=== PATIENT | female | born 1985 | race Caucasian/White ===

== ENCOUNTER 2018-11-13 10:54 | Inpatient (IN) | payer MEDICAID ==
[~2018-11-13] VITALS: Ht 167.6 cm; Wt 122.5 kg
[~2018-11-13 10:54] MED LIST: LACTATED RINGERS 1,000 ML IV SCH
[2018-11-13 11:29] LABS: UCG SCREEN NEGATIVE
[2018-11-13] MEDS ORDERED: LEVO1TAB58 PO (11:52)
[2018-11-13] MEDS ORDERED: LIDOCAINE HCL 1% 20ML VIAL (Pyxis) INJ ONE (11:59)
[2018-11-13] MEDS ORDERED: CEFOXITIN SODIUM 2 G in DEXT 5% WATER 100 ML IV ONE (12:00)
[2018-11-13] MEDS ORDERED: SKIN ADHESIVE 0.7 GM EA TOP ONE (12:00)
[2018-11-13] MEDS ORDERED: BUPIVACAINE HCL/PF 0.5% (5MG/ML) 10ML ONE (12:00)
[2018-11-13] MEDS ORDERED: MIDAZOLAM HCL 2 MG/2 ML VIAL ONE (12:35)
[2018-11-13] MEDS ORDERED: FENTANYL CITRATE/PF 50MCG/ML 2ML VIAL ONE (12:35)
[2018-11-13] MEDS ORDERED: PROPOFOL 200MG/20ML VIAL IV ONE (12:36)
[2018-11-13] MEDS ORDERED: IOPAMIDOL 61% 300/15 ML VIAL IT ONE (12:37)
[2018-11-13] MEDS ORDERED: LIDOCAINE HCL/PF 1% 10 MG/ML 5ML VIAL ONE (12:37)
[2018-11-13] MEDS ORDERED: SODIUM CHLORIDE 0.9% 10ML VIAL ONE (12:40)
[2018-11-13] MEDS ORDERED: CEFAZOLIN SODIUM 1000MG/VIAL ONE (12:40)
[2018-11-13] MEDS ORDERED: EPHEDRINE SULFATE 50MG/ML VIAL ONE (12:43)
[2018-11-13] MEDS ORDERED: SUCCINYLCHOLINE CHLORIDE 200MG/10ML IV ONE (12:43)
[2018-11-13] MEDS ORDERED: ROCURONIUM BROMIDE 10MG/ML VIAL 5ML IV ONE ×2 (14:14→15:00)
[2018-11-13] MEDS ORDERED: ONDANSETRON HCL 4MG/2ML INJ ONE (14:51)
[2018-11-13] MEDS ORDERED: DEXAMETHASONE 4MG/ML 1ML VIAL ONE (14:51)
[2018-11-13] MEDS ORDERED: GLYCOPYRROLATE 0.2 MG/ML 2ML VIAL ONE (15:01)
[2018-11-13] MEDS ORDERED: NEOSTIGMINE METHYLSULFATE 1MG/ML 10 ML VIAL ONE (15:01)
[2018-11-13] MEDS ORDERED: ONDANSETRON HCL 4MG/2ML INJ IV PRN (15:45)
[2018-11-13] MEDS ORDERED: HYDROMORPHONE HCL/PF 2MG/ML CPJ IV PRN (15:45)
[2018-11-13] MEDS: HYDROMORPHONE HCL/PF 2MG/ML CPJ IV PRN ×9 (16:52→21:16)
[2018-11-13 23:00] VITALS: BP 126/62
[2018-11-14] VITALS: BP 126/62
[2018-11-14] MEDS ORDERED: SODIUM CHLORIDE 0.45% 1,000 ML IV SCH (01:00)
[2018-11-14] MEDS ORDERED: DIPHENHYDRAMINE 50MG CAPSULE PO PRN (01:45)
[2018-11-14 04:00] VITALS: BP 114/59
[2018-11-14] MEDS ORDERED: KETOROLAC 30MG/ML VIAL IV SCH (06:00)
[2018-11-14 08:00] VITALS: BP 109/56
[2018-11-14 09:29] VITALS: BP 109/56
== END 2018-11-14 10:22 | disposition home or self-care (01) | DRG 263 ==
LOC: OR 10:54 → 6EST 10:55
PROVIDERS: ADMIT Specialist; ATTEND Specialist
PROC: 0FT44ZZ Resection of Gallbladder, Percutaneous Endoscopic Approach (ICD-10-PCS; principal; 2018-11-13)
DX: K80.10 Calculus of gallbladder with chronic cholecystitis without obstruction (principal); Z68.41 Body mass index [BMI] 40.0-44.9, adult; E66.9 Obesity, unspecified; Z91.018 Allergy to other foods; Z78.1 Physical restraint status
CPT/HCPCS: 81025; 88304; J0330; J0690; J0694; J1100; J1170; J1885; J2250; J2405; J2704; J2710; J3010; J3490; J7060; Q0163; Q9967